=== PATIENT | female | born 1985 | race Hispanic/Latino ===

== ENCOUNTER → 2022-08-21 15:08 | Outpatient (CLI) | payer SELFPAY ==
--- NOTE | ~2022-08-21 | US_ITS ---
EXAMINATION: US OB <= 14 weeks fetus DATE: 08/21/2022 15:34 INDICATION: Discordant date during first trimester TECHNIQUE: Real-time pelvic transabdominal and transvaginal ultrasound was performed. COMPARISON: None. FINDINGS: There is a single intrauterine in transverse lie. The placenta is anterior and 3 .1 cm from the internal cervical os. heart motion is identified measuring 142 beats per minute (bpm) by M-mode Doppler. The following biometric data were obtained: Biparietal diameter (BPD): 3.2 cm; head circumference (HC): 13.0 cm; abdominal circumference (AC): 9. 4 cm; femur length (FL): 1.9 cm. The head circumference to abdominal circumference ratio is greater than two standard deviations above the mean. These measurements are otherwise concordant. Estimated weight is 132 g +/- 19 g, which correlates with the >97th percentile when 02/28/2023 i s used as estimated date of delivery. As single measurements, these parameters are each equal to the following estimated gestational ages w ith ranges of +/- 2 standard deviations: BPD: 16 weeks 0 days ( 14 weeks 6 days - 17 weeks 2 days). HC: 16 weeks 5 days ( 15 weeks 3 days - 17 weeks 6 days). AC: 15 weeks 4 days ( 13 weeks 6 days - 17 weeks 1 days). FL: 15 weeks 5 days ( 14 weeks 2 days - 17 weeks 0 days). estimated gestational age based solely on measurements from this exam is 16 weeks 0 days +/- 1 weeks 1 days. Estimated delivery date is 02/05/2023 based on measurements from this examination. There is no free fluid in the pelvis. IMPRESSION: 1. Live intrauterine in transverse lie. 2. Estimated weight is 132 g +/- 19 g, which correlates with the >97th percentile when 3 is used as estimated date of delivery. Estimated date of delivery based solely on measurements from this examination is 02/05/2023. 3. Head circumference to abdominal circumference ratio greater than two standard deviations above the mean. Reviewed, dictated and finalized at location B. [facility] IMPRESSION: 1. Live intrauterine in transverse lie. 2. Estimated weight is 132 g +/- 19 g, which correlates with the >97th pe rcentile when 02/28/2023 is used as estimated date of delivery. Estimated date o f delivery based solely on measurements from this examination is 02/05/2023. 3. Head circumference to abdominal circumference ratio greater than two standar d deviations above the mean.
== END ==
PROVIDERS: PCP Physician Assistant; Visit Provider Physician Assistant
DX: Z34.91 Encounter for supervision of normal pregnancy, unspecified, first trimester (principal)
CPT/HCPCS: 76801